=== PATIENT | female | born 2000 | race Two or more races ===

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

== ENCOUNTER 2020-07-05 21:47 | Emergency (ER) | payer MEDICAID ==
[~2020-07-05] VITALS: Ht 162.6 cm; Wt 63.5 kg
[2020-07-05 21:48] VITALS: BP 154/91
--- NOTE | 2020-07-05 22:41 | NUR ---
SWABS COLLECTED AND SENT TO LAB
== END 2020-07-05 22:43 | disposition home or self-care (01) ==
LOC: ER 21:51
DX: U07.1 COVID-19 (principal); R51.9 Headache, unspecified
CPT/HCPCS: 99283; C9803; U0003

== ENCOUNTER 2022-11-17 10:53 | Emergency (ER) | payer MEDICAID, OTHER ==
[~2022-11-17] VITALS: Ht 162.6 cm; Wt 65.8 kg
--- NOTE | 2022-11-17 11:00 | NUR ---
RECEIVED PT 22YRS FEMALE FROM HOME C/O chest pain since yesterday 11/20 respiration spont and easy no SOB OR DISTRESS
[2022-11-17 11:02] VITALS: BP 125/68
--- NOTE | 2022-11-17 11:10 | NUR ---
SEEN BY DR. CORDOBA
[2022-11-17] MEDS ORDERED: OMEP40CA21 PO (11:47)
--- NOTE | 2022-11-17 12:17 | NUR ---
Patient discharged to home in stable condition. Written and verbal after care instructions given. Patient verbalizes understanding of instruction.
== END 2022-11-17 12:18 | disposition home or self-care (01) ==
LOC: ER 10:58
DX: R07.89 Other chest pain (principal)